=== PATIENT | female | born 1985 | race Two or more races ===

== ENCOUNTER 2018-05-11 13:27 | Emergency (ER) | payer BC ==
--- NOTE | 2018-05-11 14:55 | ER Document Report ---
ED GI/ - General Chief Complaint: Vaginal Bleeding Stated Complaint: VAGINAL BLEEDING Time Seen by Provider: 05/11/18 14:42 Mode of Arrival: Ambulatory Information source: Patient Notes: 32-year-old female patient who found that she was 4 days ago. LMP was 04/06/2018. This morning she started having some cramps in the pelvic region with bleeding. She is A0. Patient was taking Robaxin, Flexeril, metformin, and Adderall prior to learning that she was 4 days ago. TRAVEL OUTSIDE OF THE [place] IN LAST 30 DAYS: No - Related Data Allergies/Adverse Reactions: No Known Allergies Allergy (Unverified 05/11/18 13:30) Past Medical History - General Information source: Patient - Social History Smoking Status: Former Smoker Cigarette use (# per day): No - Stopped 4 days ago when she did a positive hCG Chew tobacco use (# tins/day): No Smoking Education Provided: No Frequency of alcohol use: Stopped 4 days ago when she found out she is Drug Abuse: None Lives with: Friend Family History: None Patient has suicidal ideation: No Patient has homicidal ideation: No - Past Medical History Cardiac Medical History: Reports: None Pulmonary Medical History: Reports: None EENT Medical History: Reports: None Neurological Medical History: Reports: None Endocrine Medical History: Reports: Hx Diabetes Mellitus Type 2, Other - Polycystic ovary syndrome (PCOS) Renal/ Medical History: Reports: None GI Medical History: Reports: None Musculoskeletal Medical History: Reports Other - Chronic back pains Skin Medical History: Reports None Psychiatric Medical History: Reports: Hx Attention Deficit Hyperactivity Disorder Past Surgical History: Reports: Hx Gynecologic Surgery - LEEP procedure Review of Systems - Review of Systems Constitutional: No symptoms reported EENT: No symptoms reported Cardiovascular: No symptoms reported Respiratory: No symptoms reported Gastrointestinal: No symptoms reported Genitourinary: No symptoms reported Female Genitourinary: Musculoskeletal: Back pain Skin: No symptoms reported Hematologic/Lymphatic: No symptoms reported Neurological/Psychological: No symptoms reported Physical Exam - Vital signs Vitals: Temp Pulse Resp BP Pulse Ox 97.9 F 85 18 143/74 H 100 05/11/18 13:55 05/11/18 13:55 05/11/18 13:55 05/11/18 13:55 05/11/18 13:55 Interpretation: Normal - General General appearance: Appears well, Alert In distress: None - HEENT Head: Normocephalic, Atraumatic Eyes: Normal Pupils: PERRL - Respiratory Respiratory status: No respiratory distress Breath sounds: Normal - Cardiovascular Rhythm: Regular Heart sounds: Normal auscultation Murmur: No - Abdominal Inspection: Normal Bowel sounds: Normal Tenderness: Nontender - Back Back: Normal - Extremities General upper extremity: Normal inspection General lower extremity: Normal inspection - Neurological Neuro grossly intact: Yes - Psychological Associated symptoms: Normal affect, Normal mood - Skin Skin Temperature: Warm Skin Moisture: Dry Skin Color: Normal Course - Vital Signs Vital signs: Temp Pulse Resp BP Pulse Ox 97.9 F 85 18 143/74 H 100 05/11/18 13:55 05/11/18 13:55 05/11/18 13:55 05/11/18 13:55 05/11/18 13:55 - Laboratory Result Diagrams: 05/11/18 15:04 05/11/18 15:04 Laboratory results interpreted by me: 05/11/18 05/11/18 15:04 15:04 WBC 11.5 H Beta HCG, Quant 293.53 H Discharge - Discharge Clinical Impression: Missed Condition: Stable Disposition: HOME, SELF-CARE Additional Instructions: Miscarriage You have PROBABLY had a miscarriage (medically called a "spontaneous "). The miscarriage occurred because the fetus did not develop normally. There is nothing you did to cause it, and nothing you could have done to prevent it. About one in four ends in miscarriage. You should rest in bed for two or three days. As there is some risk of infection of the uterus, you should not have intercourse for one week (or until okayed by your physician). You might not have a period for six to eight weeks. You should not become again for at least three months -- the uterus requires time to get back to normal. Call the doctor or return for re-examination if there is heavy or persistent vaginal bleeding, fever, foul discharge, continued cramping pains, or abdominal pain. There is no intrauterine seen on ultrasound. Your hormone level is very low at 293.53 You should follow-up with your doctor when you get home and repeat the hormone level to ensure that it is going back down to 0. RETURN TO THE EMERGENCY ROOM IF ANY NEW OR WORSENING SYMPTOMS.
[2018-05-11 15:35] LABS: ABSOLUTE EOSINOPHILS # (AUTO) 0.2 10^3/uL (0.0-0.6); ABSOLUTE LYMPHOCYTES (AUTO) 2.5 10^3/uL (0.5-4.7); ABSOLUTE MONOCYTES (AUTO) 0.9 10^3/uL (0.1-1.4); ABSOLUTE NEUT (AUTO) 7.9 10^3/uL (1.7-8.2); BASOPHILS % (AUTO) 0.4 % (0-2); HEMATOCRIT 40.2 % (36.0-47.0); LYMPHOCYTES % (AUTO) 21.6 % (13-45); MEAN CORPUSCULAR HEMOGLOBIN 32.1 pg (27.0-33.4); MEAN CORPUSCULAR VOLUME 92 fl (80-97); MONOCYTES % (AUTO) 7.6 % (3-13); PLATELET COUNT 394 10^3/uL (150-450); RED BLOOD COUNT 4.38 10^6/uL (3.72-5.28); RED CELL DISTRIBUTION WIDTH 12.8 % (11.5-14.0); SEGMENTED NEUTROPHILS % (AUTO) 68.4 % (42-78); TOTAL CELLS COUNTED % (AUTO) 100 %; WHITE BLOOD COUNT 11.5 10^3/uL (4.0-10.5)
[2018-05-11 15:55] LABS: ALANINE AMINOTRANSFERASE 26 U/L (9-52); ALBUMIN 4.2 g/dL (3.5-5.0); ALKALINE PHOSPHATASE 58 U/L (38-126); ANION GAP 13 (5-19); ASPARTATE AMINO TRANSFERASE 20 U/L (14-36); BILIRUBIN,DIRECT 0.2 mg/dL (0.0-0.4); BILIRUBIN,TOTAL 0.3 mg/dL (0.2-1.3); BLOOD UREA NITROGEN 13 mg/dL (7-20); CALCIUM 9.5 mg/dL (8.4-10.2); CARBON DIOXIDE 24 mmol/L (22-30); CHLORIDE 104 mmol/L (98-107); GLUCOSE 93 mg/dL (75-110); POTASSIUM 4.9 mmol/L (3.6-5.0); SODIUM 140.7 mmol/L (137-145)
--- NOTE | 2018-05-11 16:20 | RADIOLOGY REPORT (SQ) ---
EXAM DESCRIPTION: U/S OB TRANSVAGINAL W/O DOP COMPLETED DATE/TIME: 05/11/2018 4:02 pm REASON FOR STUDY: Pelvic cramps with bleeding COMPARISON: None. TECHNIQUE: Transvaginal static and realtime grayscale images acquired of the pelvis. Additional krzysztof cted spectral and color Doppler images recorded. All images stored on PACs. CLINICAL AGE: EGA: 5 weeks. LUCIANA: 01/11/2019 BHCG: Not available. LIMITATIONS: None. FINDINGS: UTERUS: No visualized intrauterine . The uterus measures 8.5 x 5.9 x 4.7 cm. A 1.3 x 1.6 x 1.3 cm fibroid in the posterior fundus. RIGHT ADNEXA: Normal ovary with normal vascular flow. The right ovary measures 2.9 x 2.9 x 2.4 cm No adnexal free fluid. No adnexal masses. LEFT ADNEXA: Normal ovary with normal vascular flow. The left ovary measures 2.7 x 2.2 x 2.1 cm No adnexal free fluid. No adnexal masses. FREE FLUID: None. OTHER: The endometrial stripe measures 17.8 mm. The cervix measures 3.0 cm in length. A small Nabo thian cyst is identified. IMPRESSION: 1. NO VISUALIZED INTRA- OR EXTRAUTERINE . Correlation suggested and very short -term follow-up examination for re-evaluation. 2. Uterine fibroid. 3. A small Nabothian cyst in the cervix region. TECHNICAL DOCUMENTATION: JOB ID: [id number] 1991 [employer]- All Rights Reserved Reading location - IP/workstation name: [email or web address]
[2018-05-11 16:38] VITALS: BP 129/68
== END 2018-05-11 16:50 | disposition home or self-care (01) ==
LOC: ER 13:27
DX: O02.1 Missed abortion (principal); E11.9 Type 2 diabetes mellitus without complications; F90.9 Attention-deficit hyperactivity disorder, unspecified type; M54.5 Low back pain; G89.29 Other chronic pain; Z87.891 Personal history of nicotine dependence
CPT/HCPCS: 36415; 76817; 80053; 84702; 85025; 86900; 86901; 99284